=== PATIENT | female | born 1995 ===

== ENCOUNTER 2016-12-26 14:31 | Emergency (ER) | payer OTHER ==
[2016-12-26 15:07] VITALS: BMI 24.4
[2016-12-26 15:10] VITALS: BP 114/66; PULSE 79; RESP 18; TEMP 98.8; O2SAT 100
--- NOTE | 2016-12-26 16:20 | ED PDOC ---
HPI: Allergic Reaction Time Seen by Provider: 12/26/16 16:16 Chief Complaint (Nursing): Abnormal Skin Integrity Chief Complaint (Provider): rash History Per: Patient History/Exam Limitations: no limitations Additional Complaint(s): 21yo F in ED for allergic reaction noted yesterday-itching swelling lesion on back, legs and torso intermittent without swelling of extremities, fever, SOMMER, dizziness vision changes, CP , SOB, abd pain. pt has no hx of allergies. denies use of new detergents, soaps, foods, cream, denies known seasonal allergies. Past Medical History Reviewed: Historical Data, Nursing Documentation, Vital Signs Vital Signs: Last Vital Signs Temp 98.8 F 12/26/16 15:07 Pulse 79 12/26/16 15:07 Resp 18 12/26/16 15:07 BP 114/66 12/26/16 15:07 Pulse Ox 100 12/26/16 15:07 - Medical History PMH: No Chronic Diseases - Family History Family History: States: No Known Family Hx - Home Medications Home Medications: Ambulatory Orders Medication Instructions Recorded DiphenhydrAMINE [Benadryl] 25 mg PO TID #20 cap 12/26/16 Famotidine [Pepcid] 20 mg PO BID #16 tab 12/26/16 predniSONE [predniSONE Tab] 20 mg PO BID #8 tab 12/26/16 - Allergies Allergies/Adverse Reactions: Allergies Allergy/AdvReac Type Severity Reaction Status Date / Time No Known Allergies Allergy Verified 12/26/16 15:06 Review of Systems ROS Statement: Except As Marked, All Systems Reviewed And Found Negative Constitutional: Negative for: Fever, Weakness Gastrointestinal: Negative for: Nausea, Vomiting, Abdominal Pain Skin: Positive for: Rash, Lesions Physical Exam - Reviewed Nursing Documentation Reviewed: Yes Vital Signs Reviewed: Yes - Physical Exam Appears: Positive for: Non-toxic, No Acute Distress Head Exam: Positive for: ATRAUMATIC, NORMAL INSPECTION, NORMOCEPHALIC Skin: Positive for: Normal Color, Warm, Rash (hives noted on upper arms and psot. legs. ) Eye Exam: Positive for: EOMI, Normal appearance, PERRL ENT: Positive for: Normal ENT Inspection Neck: Positive for: Normal, Painless ROM Cardiovascular/Chest: Positive for: Regular Rate, Rhythm Respiratory: Positive for: CNT, Normal Breath Sounds Gastrointestinal/Abdominal: Positive for: Normal Exam, Bowel Sounds, Soft. Negative for: Tenderness Extremity: Positive for: Normal ROM. Negative for: Swelling Neurologic/Psych: Positive for: Alert, Oriented - ECG O2 Sat by Pulse Oximetry: 100 Disposition - Clinical Impression Clinical Impression: Allergic reaction - Patient ED Disposition Is Patient to be Admitted: No Counseled Patient/Family Regarding: Diagnosis, Need For Followup, Rx Given - Disposition Disposition: Routine/Home Disposition Time: 16:17 Condition: STABLE Prescriptions: DiphenhydrAMINE [Benadryl] 25 mg PO TID #20 cap Famotidine [Pepcid] 20 mg PO BID #16 tab predniSONE [predniSONE Tab] 20 mg PO BID #8 tab Instructions: Urticaria (ED) Medical Decision Making Medical Decision Making: Pt will get prednison 60mg in Ed and d/c on 40mg for 4days with epdic to take BID x 4 d and Benadryl as needed for itching. advised strongly to f.u with tree marker. pt well appearing, nontoxic with normal HR and VS.
== END 2016-12-26 16:47 | disposition home or self-care (01) ==
LOC: H.ER 14:31
DX: T78.40XA Allergy, unspecified, initial encounter (principal)